=== PATIENT | male | born 1940 | race Caucasian/White ===

== ENCOUNTER 2024-02-05 17:45 | Observation (INO) | payer MEDICARE, OTHER, SELFPAY ==
[2024-02-05] VITALS (11 sets, daily range): BP systolic 118–180; BP diastolic 72–98; PULSE 77; O2SAT 97
[2024-02-05 11:52] LABS: % Basophils 0.5 % (0-2); % Eosinophils 0.7 % (0-6); % Immature Granulocytes 0.4 % (0-0.5); % Lymphocytes 13.5 % (20.5-51.1); % Neutrophils 75.9 % (42.2-75.2); Absolute Basophils 0.1 10^3/uL (0-0.2); Absolute Eosinophils 0.1 10^3/uL (0-0.7); Absolute Lymphocytes 1.3 10^3/uL (1.2-3.4); Absolute Monocytes 0.9 10^3/uL (0.1-0.6); Absolute Neutrophils 7.3 10^3/uL (1.4-6.5); Hematocrit 41.4 % (39.0-52.0); Hemoglobin 14.2 g/dL (13.0-18.0); Mean Corp Hgb Conc. 34.3 g/dL (33.0-37.0); Mean Corpuscular Hgb 28.6 pg (27.0-31.0); Mean Corpuscular Volume 83.5 fL (80.0-94.0); Mean Platelet Volume 8.4 fL (7.4-10.4); Nucleated Red Blood Cells % 0 % (-); Platelet Count 223 10^3/uL (130-400); Red Blood Cell Count 4.96 10^6/uL (4.70-6.10); Red Cell Dist. Width 13.4 % (11.5-14.5); White Blood Cell Count 9.7 10^3/uL (4.8-10.8)
[2024-02-05 12:46] LABS: Blood Urea Nitrogen 19 mg/dl (9-20); Calcium 9.5 mg/dl (8.4-10.2); Carbon Dioxide 26 mmol/L (22-30); Chloride 100 mmol/L (98-107); Glucose 101 mg/dl (70-99); Sodium 137 mmol/L (135-145); eGFR > 60.00
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
[2024-02-05 15:37] LABS: Urine Albumin Negative (Neg - Trace); Urine Bilirubin Negative (Negative); Urine Character Clear (Clear); Urine Color Yellow; Urine Glucose Negative (Negative); Urine Ketone 1+ (Negative); Urine Leukocyte 2+ (Negative); Urine Nitrite Positive (Negative); Urine Occult Blood Negative (Negative); Urine Urobilinogen Negative (Neg - 1+)
[2024-02-05 15:53] LABS: Urine Squamous Cell 0-2 /LPF (Few)
[2024-02-05 15:54] LABS: Urine Bacteria Many (Negative); Urine Red Blood Cell 0-2 /HPF (0-2); Urine White Cell 50-60 /HPF (0-5)
[2024-02-05] MEDS: KEFLEX 500 MG PO (16:25)
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
[2024-02-05] MEDS: SEROQUEL 25 MG PO (20:40)
[2024-02-05] MEDS: FEOSOL 325 MG PO (20:41)
[2024-02-05] MEDS: LIPITOR 40 MG PO (20:41)
[2024-02-05] MEDS: VITAMIN D3 (cholecalciferol) 50 MCG PO (20:41)
[2024-02-05] MEDS: COREG 12.5 MG PO (20:41)
[2024-02-05] MEDS: SINEMET 25-100 1 TABLET PO (20:41)
[2024-02-05] MEDS: CEFTIN 500 MG PO (20:41)
[2024-02-05] MEDS: HEPARIN 5000 UNITS SC (20:42)
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
[2024-02-06 08:15] LABS: % Basophils 0.7 % (0-2); % Eosinophils 1.4 % (0-6); % Immature Granulocytes 0.3 % (0-0.5); % Lymphocytes 21.7 % (20.5-51.1); % Neutrophils 64.9 % (42.2-75.2); Absolute Basophils 0.1 10^3/uL (0-0.2); Absolute Eosinophils 0.1 10^3/uL (0-0.7); Absolute Lymphocytes 1.5 10^3/uL (1.2-3.4); Absolute Monocytes 0.8 10^3/uL (0.1-0.6); Absolute Neutrophils 4.6 10^3/uL (1.4-6.5); Hematocrit 39.8 % (39.0-52.0); Hemoglobin 13.3 g/dL (13.0-18.0); Mean Corp Hgb Conc. 33.4 g/dL (33.0-37.0); Mean Corpuscular Hgb 28.2 pg (27.0-31.0); Mean Corpuscular Volume 84.5 fL (80.0-94.0); Mean Platelet Volume 8.7 fL (7.4-10.4); Nucleated Red Blood Cells % 0 % (-); Platelet Count 201 10^3/uL (130-400); Red Blood Cell Count 4.71 10^6/uL (4.70-6.10); Red Cell Dist. Width 13.3 % (11.5-14.5)
[2024-02-06 08:21] VITALS: BP 160/80
[2024-02-06] MEDS: LEXAPRO 10 MG PO (08:30)
[2024-02-06] MEDS: ALDACTONE 25 MG PO (08:30)
[2024-02-06] MEDS: PROTONIX 40 MG PO (08:30)
[2024-02-06] MEDS: LOW STRENGTH ASPIRIN 81 MG PO (08:30)
[2024-02-06] MEDS: COREG 12.5 MG PO ×2 (08:30→19:35)
[2024-02-06] MEDS: NORVASC 5 MG PO (08:31)
[2024-02-06] MEDS: CEFTIN 500 MG PO ×2 (08:31→19:34)
[2024-02-06] MEDS: HEPARIN 5000 UNITS SC ×2 (08:31→19:34)
[2024-02-06] MEDS: SEROQUEL 12.5 MG PO (08:32)
[2024-02-06] MEDS: SINEMET 25-100 1 TABLET PO ×3 (08:39→21:20)
[2024-02-06 09:54] LABS: ALT (SGPT) 15 U/L (0-50); AST (SGOT) 24 U/L (17-59); Albumin 3.6 g/dl (3.5-5.0); Alkaline Phosphatase 61 U/L (38-126); Blood Urea Nitrogen 13 mg/dl (9-20); Carbon Dioxide 25 mmol/L (22-30); Chloride 103 mmol/L (98-107); Glucose 81 mg/dl (70-99); Potassium 3.9 mmol/L (3.5-5.1); Sodium 141 mmol/L (135-145); Total Bilirubin 1.3 mg/dl (0.2-1.3); Total Protein 6.2 g/dl (6.3-8.2); eGFR > 60.00
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
[2024-02-06 14:39] VITALS: BP 165/77
[2024-02-06] MEDS: LIPITOR 40 MG PO (17:07)
[2024-02-06] MEDS: FEOSOL 325 MG PO (17:08)
[2024-02-06] MEDS: VITAMIN D3 (cholecalciferol) 50 MCG PO (17:08)
[2024-02-06] MEDS: SEROQUEL 25 MG PO (21:20)
[2024-02-06 23:00] VITALS: BP 154/70
[2024-02-07 07:30] VITALS: BP 153/81
[2024-02-07] MEDS: CEFTIN 500 MG PO (08:14)
[2024-02-07] MEDS: COREG 12.5 MG PO ×2 (08:14→19:53)
[2024-02-07] MEDS: SEROQUEL 12.5 MG PO (08:14)
[2024-02-07] MEDS: LEXAPRO 10 MG PO (08:15)
[2024-02-07] MEDS: PROTONIX 40 MG PO (08:15)
[2024-02-07] MEDS: NORVASC 5 MG PO (08:15)
[2024-02-07] MEDS: LOW STRENGTH ASPIRIN 81 MG PO (08:15)
[2024-02-07] MEDS: ALDACTONE 25 MG PO (08:15)
[2024-02-07] MEDS: SINEMET 25-100 1 TABLET PO ×3 (08:16→19:53)
--- NOTE | 2024-02-07 09:04 | CM ---
Addendum entered by Lary Rosas 02/07/24 13:21:
CM received updated insurance information for patient, patient primary insurance Medicare. Per [place], patient does not qualify for [facility]. [facility]avi, requested return call regarding discharge planning.
Original Note:
CM placed call to patients previous caregiver, Lazaro Ortiz ([phone]). Lazaro provided CM with patients current insurance as previous insurance listed: [employer] ID# [id number] has been inactive since 04/02/23. New insurance:
[facility] ID#: [id number]. CM will update SNF referrals with new insurance information. CM will continue to follow for all discharge planning needs.
Plan; SNF pending accepting facility, will require insurance auth.
[2024-02-07 12:56] VITALS: BP 172/92; BP 175/101; PULSE 66
[2024-02-07 15:10] VITALS: BP 132/66
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
[2024-02-07] MEDS: LOVENOX 40 MG SC (18:00)
[2024-02-07] MEDS: LIPITOR 40 MG PO (18:01)
[2024-02-07] MEDS: VITAMIN D3 (cholecalciferol) 50 MCG PO (18:01)
[2024-02-07] MEDS: FEOSOL 325 MG PO (18:01)
[2024-02-07] MEDS: OMNICEF 300 MG PO (19:53)
[2024-02-07] MEDS: SEROQUEL 25 MG PO (21:53)
[2024-02-07 23:12] VITALS: BP 101/51
[2024-02-08 07:00] VITALS: BP 148/65
[2024-02-08] MEDS: OMNICEF 300 MG PO ×2 (08:34→20:18)
[2024-02-08] MEDS: PROTONIX 40 MG PO (08:34)
[2024-02-08] MEDS: ALDACTONE 25 MG PO (08:34)
[2024-02-08] MEDS: LOW STRENGTH ASPIRIN 81 MG PO (08:34)
[2024-02-08] MEDS: NORVASC 5 MG PO (08:35)
[2024-02-08] MEDS: SEROQUEL 12.5 MG PO (08:36)
[2024-02-08] MEDS: LEXAPRO 10 MG PO (08:36)
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
[2024-02-08] MEDS: COREG PO (08:55)
[2024-02-08] MEDS: SINEMET 25-100 1 TABLET PO ×3 (09:01→20:18)
--- NOTE | 2024-02-08 09:08 | CM ---
CM spoke with Agency worker, Javi Dominguez [phone]. CM discussed patient is observation status, would be private pay for SNF. Javi reports patient previously had waiver services, did not complete the renewal paperwork in time, is now past due for
the appeal process. Javi will speak with her fire supervisor, will try to expedite appeal process for waiver services, will also see if [employer] willing to pay for caregiver services in the home if needed. Javi will update CM after speaking with fire supervisor.
CM will continue to follow for all discharge planning needs.
Plan; will depend on [employer] involvement if patient is able to return home
[2024-02-08] MEDS: COREG 6.25 MG PO ×2 (12:57→20:17)
[2024-02-08 15:00] VITALS: BP 148/78
[2024-02-08] MEDS: LOVENOX 40 MG SC (17:45)
[2024-02-08] MEDS: FEOSOL 325 MG PO (17:46)
[2024-02-08] MEDS: VITAMIN D3 (cholecalciferol) 50 MCG PO (17:46)
[2024-02-08] MEDS: LIPITOR 40 MG PO (17:46)
[2024-02-08 19:00] VITALS: BP 137/74
[2024-02-08] MEDS: SEROQUEL 25 MG PO (22:43)
[2024-02-08 23:34] VITALS: BP 111/54
[2024-02-09 03:24] VITALS: BP 141/78
[2024-02-09 07:00] VITALS: BP 155/77
[2024-02-09] MEDS: ALDACTONE 25 MG PO (08:17)
[2024-02-09] MEDS: COREG 6.25 MG PO ×2 (08:17→19:56)
[2024-02-09] MEDS: OMNICEF 300 MG PO ×2 (08:18→19:56)
[2024-02-09] MEDS: NORVASC 5 MG PO (08:18)
[2024-02-09] MEDS: LEXAPRO 10 MG PO (08:18)
[2024-02-09] MEDS: SEROQUEL 12.5 MG PO (08:18)
[2024-02-09] MEDS: LOW STRENGTH ASPIRIN 81 MG PO (08:18)
[2024-02-09] MEDS: PROTONIX 40 MG PO (08:18)
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
[2024-02-09] MEDS: SINEMET 25-100 1 TABLET PO ×3 (09:40→20:00)
[2024-02-09 11:00] VITALS: BP 134/65
[2024-02-09 15:00] VITALS: BP 116/60
[2024-02-09] MEDS: LIPITOR 40 MG PO (17:35)
[2024-02-09] MEDS: FEOSOL 325 MG PO (17:35)
[2024-02-09] MEDS: VITAMIN D3 (cholecalciferol) 50 MCG PO (17:36)
[2024-02-09] MEDS: LOVENOX 40 MG SC (17:36)
[2024-02-09 19:00] VITALS: BP 137/72
[2024-02-09] MEDS: SEROQUEL 25 MG PO (21:55)
[2024-02-09 23:00] VITALS: BP 119/59
[2024-02-10 03:00] VITALS: BP 122/62
[2024-02-10] MEDS: TYLENOL 1000 MG PO (04:31)
[2024-02-10 07:30] VITALS: BP 141/71
[2024-02-10] MEDS: LOW STRENGTH ASPIRIN 81 MG PO (08:34)
[2024-02-10] MEDS: LEXAPRO 10 MG PO (08:34)
[2024-02-10] MEDS: SEROQUEL 12.5 MG PO (08:34)
[2024-02-10] MEDS: COREG 6.25 MG PO ×2 (08:35→20:55)
[2024-02-10] MEDS: NORVASC 5 MG PO (08:35)
[2024-02-10] MEDS: OMNICEF 300 MG PO ×2 (08:35→20:55)
[2024-02-10] MEDS: PROTONIX 40 MG PO (08:35)
[2024-02-10] MEDS: ALDACTONE 25 MG PO (08:36)
[2024-02-10] MEDS: SINEMET 25-100 1 TABLET PO ×3 (08:37→20:57)
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
[2024-02-10 15:00] VITALS: BP 131/70
[2024-02-10] MEDS: VITAMIN D3 (cholecalciferol) 50 MCG PO (17:14)
[2024-02-10] MEDS: LOVENOX 40 MG SC (17:14)
[2024-02-10] MEDS: FEOSOL 325 MG PO (17:14)
[2024-02-10] MEDS: LIPITOR 40 MG PO (17:14)
[2024-02-10] MEDS: SEROQUEL 25 MG PO (20:56)
[2024-02-10 23:22] VITALS: BP 138/71
[2024-02-11] MEDS: TYLENOL 650 MG PO (03:24)
[2024-02-11 07:00] VITALS: BP 141/69
[2024-02-11 08:37] LABS: % Eosinophils 3.4 % (0-6); % Immature Granulocytes 0.5 % (0-0.5); % Lymphocytes 23.3 % (20.5-51.1); % Monocytes 9.8 % (1.7-9.3); Absolute Basophils 0.1 10^3/uL (0-0.2); Absolute Eosinophils 0.3 10^3/uL (0-0.7); Absolute Lymphocytes 1.8 10^3/uL (1.2-3.4); Absolute Monocytes 0.8 10^3/uL (0.1-0.6); Absolute Neutrophils 4.8 10^3/uL (1.4-6.5); Hematocrit 41.4 % (39.0-52.0); Hemoglobin 13.2 g/dL (13.0-18.0); Mean Corp Hgb Conc. 31.9 g/dL (33.0-37.0); Mean Corpuscular Hgb 28.4 pg (27.0-31.0); Mean Corpuscular Volume 89.2 fL (80.0-94.0); Mean Platelet Volume 8.7 fL (7.4-10.4); Nucleated Red Blood Cells % 0 % (-); Platelet Count 215 10^3/uL (130-400); Red Blood Cell Count 4.64 10^6/uL (4.70-6.10); Red Cell Dist. Width 13.6 % (11.5-14.5); White Blood Cell Count 7.7 10^3/uL (4.8-10.8)
[2024-02-11 09:05] LABS: Blood Urea Nitrogen 16 mg/dl (9-20); Calcium 9.1 mg/dl (8.4-10.2); Carbon Dioxide 28 mmol/L (22-30); Chloride 100 mmol/L (98-107); Estimated Creatinine Clearance 68 ml/min; Glucose 95 mg/dl (70-99); Magnesium 2.1 mg/dl (1.6-2.3); Potassium 4.6 mmol/L (3.5-5.1); Sodium 141 mmol/L (135-145); eGFR > 60.00
--- NOTE | 2024-02-11 09:14 | CM ---
CM placed call to [facility] worker, Javi Dominguez [phone]. CM left voicemail, requested return call to discuss discharge planning for patient. CM will continue to follow for all discharge planning needs.
Plan; will depend on assistance from [facility].
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
[2024-02-11] MEDS: LEXAPRO 10 MG PO (10:07)
[2024-02-11] MEDS: PROTONIX 40 MG PO (10:07)
[2024-02-11] MEDS: ALDACTONE 25 MG PO (10:07)
[2024-02-11] MEDS: SEROQUEL 12.5 MG PO (10:08)
[2024-02-11] MEDS: NORVASC 5 MG PO (10:08)
[2024-02-11] MEDS: COREG 6.25 MG PO ×2 (10:08→20:55)
[2024-02-11] MEDS: LOW STRENGTH ASPIRIN 81 MG PO (10:09)
[2024-02-11] MEDS: OMNICEF 300 MG PO ×2 (10:09→20:55)
[2024-02-11] MEDS: SINEMET 25-100 1 TABLET PO ×3 (10:11→20:55)
[2024-02-11 11:39] VITALS: BP 117/65; PULSE 60; O2SAT 95
[2024-02-11 15:00] VITALS: BP 138/64
[2024-02-11] MEDS: LIPITOR 40 MG PO (16:04)
[2024-02-11] MEDS: LOVENOX 40 MG SC (16:04)
[2024-02-11] MEDS: FEOSOL 325 MG PO (16:05)
[2024-02-11] MEDS: VITAMIN D3 (cholecalciferol) 50 MCG PO (16:14)
[2024-02-11] MEDS: SEROQUEL 25 MG PO (20:55)
[2024-02-11 23:25] VITALS: BP 126/68
[2024-02-12 07:50] VITALS: BP 147/79
[2024-02-12] MEDS: COREG 6.25 MG PO ×2 (08:16→20:31)
[2024-02-12] MEDS: OMNICEF 300 MG PO ×2 (08:16→20:31)
[2024-02-12] MEDS: LEXAPRO 10 MG PO (08:16)
[2024-02-12] MEDS: PROTONIX 40 MG PO (08:16)
[2024-02-12] MEDS: LOW STRENGTH ASPIRIN 81 MG PO (08:16)
[2024-02-12] MEDS: ALDACTONE 25 MG PO (08:16)
[2024-02-12] MEDS: NORVASC 5 MG PO (08:16)
[2024-02-12] MEDS: SEROQUEL 12.5 MG PO (08:17)
[2024-02-12] MEDS: SINEMET 25-100 1 TABLET PO ×3 (08:18→20:31)
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
--- NOTE | 2024-02-12 12:21 | CM ---
CM reviewed chart, spoke with Javi from [facility], will visit patient at Hospital today. Per Javi, patient has not missed the appeal process for waiver services and Javi will provide paperwork to patient today to sign. Met with patient
bedside, discussed patient would need to privately pay for SNF, patient unable to do so. CM discussed [employer] will pay for caregivers in the home until waiver services kick in, patient reports he is not comfortable returning to home with previous
caregiver, Lazaro, still living in home will relay to Javi.
CM met with Javi, [facility] ip attorney notified and will assist patient with expediting waiver services appeal. Patient will need to begin eviction process for ex caregiver to leave home, Javi to assist and provide resources to patient in process. CM will
continue to follow for all discharge planning needs.
Plan; [facility] working with patient to assist with waiver program/eviction process.
[2024-02-12 12:28] VITALS: BP 117/68; PULSE 62; O2SAT 98
[2024-02-12 15:06] VITALS: BP 108/59
[2024-02-12] MEDS: LOVENOX 40 MG SC (16:20)
[2024-02-12] MEDS: FEOSOL 325 MG PO (16:21)
[2024-02-12] MEDS: LIPITOR 40 MG PO (16:21)
[2024-02-12] MEDS: VITAMIN D3 (cholecalciferol) 50 MCG PO (16:21)
[2024-02-12] MEDS: SEROQUEL 25 MG PO (20:31)
[2024-02-12 23:03] VITALS: BP 134/68
[2024-02-13 07:30] VITALS: BP 154/77
[2024-02-13] MEDS: ALDACTONE 25 MG PO (08:05)
[2024-02-13] MEDS: OMNICEF 300 MG PO ×2 (08:05→20:00)
[2024-02-13] MEDS: LOW STRENGTH ASPIRIN 81 MG PO (08:06)
[2024-02-13] MEDS: SEROQUEL 12.5 MG PO (08:06)
[2024-02-13] MEDS: NORVASC 5 MG PO (08:06)
[2024-02-13] MEDS: COREG 6.25 MG PO ×2 (08:06→20:00)
[2024-02-13] MEDS: LEXAPRO 10 MG PO (08:06)
[2024-02-13] MEDS: PROTONIX 40 MG PO (08:08)
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
[2024-02-13] MEDS: SINEMET 25-100 1 TABLET PO ×3 (09:33→21:05)
[2024-02-13 10:09] VITALS: BP 115/60; PULSE 59; O2SAT 96
[2024-02-13 14:53] VITALS: BP 149/74
--- NOTE | 2024-02-13 15:44 | CM ---
Addendum entered by Lary Rosas 02/13/24 15:51:
PT/OT notes faxed to Javi Dominguez ([facility]) [phone].
Original Note:
CM reviewed chart, patient seen bedside. Per Javi [facility] worker, have not heard back from traffic law attorney, asking if patient can call [employer] [facility] [phone]- provided to patient, will need assistance calling. [facility] requesting psych consult- TT to
Hospitalist. Referral sent to [facility] SNF, will try for secondary insurance for SNF approval if SNF can offer bed. CM will continue to follow for all discharge planning needs.
Plan; will try for SNF auth through secondary insurance if accepting SNF.
[2024-02-13] MEDS: VITAMIN D3 (cholecalciferol) 50 MCG PO (17:26)
[2024-02-13] MEDS: FEOSOL 325 MG PO (17:26)
[2024-02-13] MEDS: LIPITOR 40 MG PO (17:26)
[2024-02-13] MEDS: LOVENOX 40 MG SC (17:26)
[2024-02-13 19:59] VITALS: BP 136/64
[2024-02-13] MEDS: TYLENOL 650 MG PO (20:01)
[2024-02-13] MEDS: SEROQUEL 25 MG PO (21:05)
[2024-02-13 23:30] VITALS: BP 111/55
[2024-02-14 07:30] VITALS: BP 139/70
[2024-02-14] MEDS: PROTONIX 40 MG PO (07:46)
[2024-02-14] MEDS: OMNICEF 300 MG PO ×2 (07:46→20:14)
[2024-02-14] MEDS: LOW STRENGTH ASPIRIN 81 MG PO (07:46)
[2024-02-14] MEDS: NORVASC 5 MG PO (07:46)
[2024-02-14] MEDS: ALDACTONE 25 MG PO (07:47)
[2024-02-14] MEDS: SEROQUEL 12.5 MG PO (07:47)
[2024-02-14] MEDS: COREG 6.25 MG PO ×2 (07:48→20:14)
[2024-02-14] MEDS: LEXAPRO 10 MG PO (09:22)
[2024-02-14] MEDS: SINEMET 25-100 1 TABLET PO ×3 (09:22→21:17)
[2024-02-14] MEDS: REFRESH EYE DROPS (PF) 1 DROPS OPHTH ×3 (13:31→21:17)
[2024-02-14 15:00] VITALS: BP 147/77
[2024-02-14] MEDS: VITAMIN D3 (cholecalciferol) 50 MCG PO (17:27)
[2024-02-14] MEDS: LIPITOR 40 MG PO (17:27)
[2024-02-14] MEDS: FEOSOL 325 MG PO (17:27)
[2024-02-14] MEDS: LOVENOX 40 MG SC (17:28)
[2024-02-14 20:12] VITALS: BP 122/64
[2024-02-14] MEDS: SEROQUEL 25 MG PO (21:17)
[2024-02-14 23:30] VITALS: BP 132/60
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
[2024-02-15 08:14] VITALS: BP 163/78
[2024-02-15] MEDS: COREG 6.25 MG PO ×2 (08:15→20:28)
[2024-02-15] MEDS: OMNICEF 300 MG PO ×2 (08:15→20:15)
[2024-02-15] MEDS: PROTONIX 40 MG PO (08:15)
[2024-02-15] MEDS: ALDACTONE 25 MG PO (08:15)
[2024-02-15] MEDS: LOW STRENGTH ASPIRIN 81 MG PO (08:15)
[2024-02-15] MEDS: LEXAPRO 10 MG PO (08:15)
[2024-02-15] MEDS: SEROQUEL 12.5 MG PO (08:16)
[2024-02-15] MEDS: REFRESH EYE DROPS (PF) 1 DROPS OPHTH ×4 (08:16→20:15)
[2024-02-15] MEDS: NORVASC 5 MG PO (08:16)
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
[2024-02-15] MEDS: SINEMET 25-100 1 TABLET PO ×3 (10:15→20:29)
[2024-02-15 10:22] VITALS: BP 131/62; PULSE 60; O2SAT 97
--- NOTE | 2024-02-15 13:56 | CM ---
[facility] able to offer patient a bed if auth approved. [place] [phone], instructed to complete prior auth request form and send with clinicals, no pending auth number given. CM will continue to follow
for all discharge planning needs.
Plan; [place] [facility], [facility] following.
[2024-02-15 15:00] VITALS: BP 139/73
[2024-02-15] MEDS: LIPITOR 40 MG PO (17:38)
[2024-02-15] MEDS: FEOSOL 325 MG PO (17:38)
[2024-02-15] MEDS: VITAMIN D3 (cholecalciferol) 50 MCG PO (17:38)
[2024-02-15] MEDS: LOVENOX 40 MG SC (17:39)
[2024-02-15] MEDS: SEROQUEL 25 MG PO (20:16)
[2024-02-15 23:00] VITALS: BP 114/61
[2024-02-16 07:24] VITALS: BP 156/80
[2024-02-16] MEDS: PROTONIX 40 MG PO (07:26)
[2024-02-16] MEDS: LEXAPRO 10 MG PO (07:26)
[2024-02-16] MEDS: COREG 6.25 MG PO ×2 (07:26→20:17)
[2024-02-16] MEDS: LOW STRENGTH ASPIRIN 81 MG PO (07:26)
[2024-02-16] MEDS: ALDACTONE 25 MG PO (07:26)
[2024-02-16] MEDS: SEROQUEL 12.5 MG PO (07:26)
[2024-02-16] MEDS: OMNICEF 300 MG PO ×2 (07:26→20:17)
[2024-02-16] MEDS: NORVASC 5 MG PO (07:26)
[2024-02-16] MEDS: TYLENOL 650 MG PO (07:27)
[2024-02-16] MEDS: REFRESH EYE DROPS (PF) 1 DROPS OPHTH ×4 (07:27→20:19)
[2024-02-16] MEDS: SINEMET 25-100 1 TABLET PO ×3 (09:26→20:21)
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
[2024-02-16 15:00] VITALS: BP 135/75
[2024-02-16] MEDS: FEOSOL 325 MG PO (17:34)
[2024-02-16] MEDS: LOVENOX 40 MG SC (17:34)
[2024-02-16] MEDS: LIPITOR 40 MG PO (17:34)
[2024-02-16] MEDS: VITAMIN D3 (cholecalciferol) 50 MCG PO (17:34)
[2024-02-16] MEDS: SEROQUEL 25 MG PO (20:19)
[2024-02-16 23:44] VITALS: BP 114/53
[2024-02-17 07:45] VITALS: BP 160/79
[2024-02-17] MEDS: ALDACTONE 25 MG PO (08:41)
[2024-02-17] MEDS: LEXAPRO 10 MG PO (08:41)
[2024-02-17] MEDS: COREG 6.25 MG PO ×2 (08:41→20:05)
[2024-02-17] MEDS: REFRESH EYE DROPS (PF) 1 DROPS OPHTH ×4 (08:41→20:05)
[2024-02-17] MEDS: SEROQUEL 12.5 MG PO (08:41)
[2024-02-17] MEDS: NORVASC 5 MG PO (08:41)
[2024-02-17] MEDS: LOW STRENGTH ASPIRIN 81 MG PO (08:41)
[2024-02-17] MEDS: SINEMET 25-100 1 TABLET PO ×3 (08:41→20:06)
[2024-02-17] MEDS: PROTONIX 40 MG PO (08:41)
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
[2024-02-17 15:23] VITALS: BP 144/67
[2024-02-17] MEDS: LOVENOX 40 MG SC (17:23)
[2024-02-17] MEDS: FEOSOL 325 MG PO (17:23)
[2024-02-17] MEDS: LIPITOR 40 MG PO (17:23)
[2024-02-17] MEDS: VITAMIN D3 (cholecalciferol) 50 MCG PO (17:23)
[2024-02-17] MEDS: SEROQUEL 25 MG PO (20:05)
[2024-02-17 23:20] VITALS: BP 112/63
[2024-02-18] MEDS: TYLENOL 1000 MG PO (00:44)
[2024-02-18 07:37] LABS: Glucose - Point of Care 86 mg/dl (70-99)
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
[2024-02-18 08:02] VITALS: BP 156/76
[2024-02-18] MEDS: PROTONIX 40 MG PO (08:02)
[2024-02-18] MEDS: LOW STRENGTH ASPIRIN 81 MG PO (08:04)
[2024-02-18] MEDS: REFRESH EYE DROPS (PF) 1 DROPS OPHTH ×2 (08:04→12:59)
[2024-02-18] MEDS: LEXAPRO 10 MG PO (08:04)
[2024-02-18] MEDS: SEROQUEL 12.5 MG PO (08:04)
[2024-02-18] MEDS: NORVASC 5 MG PO (08:05)
[2024-02-18] MEDS: COREG 6.25 MG PO (08:06)
[2024-02-18] MEDS: ALDACTONE 25 MG PO (08:06)
[2024-02-18] MEDS: SINEMET 25-100 1 TABLET PO ×2 (08:10→15:06)
--- NOTE | 2024-02-18 10:13 | CM ---
Addendum entered by Lary Rosas 02/18/24 10:35:
Patient scheduled for 4:00 p.m. transport.
Original Note:
CM received auth approval through [facility], auth approved 02/17-03/18, auth #[id number], fax updates to , update to Noelle at [facility]. Patient seen bedside, aware of plan for discharge to [facility]. Javi
Alberto with [employer] updated on discharge status. Patient will require transport, forms provided to community affairs director. CM will continue to follow for all discharge planning needs.
Plan; [facility], ambulance transport.
[facility]
Report: [phone]
[2024-02-18 15:11] VITALS: BP 139/69
== END 2024-02-18 17:04 ==
LOC: 4 WEST ACU 17:45
PROVIDERS: Physician Assistant; ADMITTING PHYSICIAN Hospitalist; ATTENDING PHYSICIAN Hospitalist; EMERGENCY PHYSICIAN Emergency Medicine; OTHER PHYSICIAN Psychiatry & Neurology Psychiatry
DX: N39.0 Urinary tract infection, site not specified (principal); R44.1 Visual hallucinations; B96.1 Klebsiella pneumoniae [K. pneumoniae] as the cause of diseases classified elsewhere; N40.0 Benign prostatic hyperplasia without lower urinary tract symptoms; H21.89 Other specified disorders of iris and ciliary body; E78.00 Pure hypercholesterolemia, unspecified; I10 Essential (primary) hypertension; G31.9 Degenerative disease of nervous system, unspecified; R00.1 Bradycardia, unspecified; I25.10 Atherosclerotic heart disease of native coronary artery without angina pectoris; F41.9 Anxiety disorder, unspecified; F32.A Depression, unspecified; K21.9 Gastro-esophageal reflux disease without esophagitis; R56.9 Unspecified convulsions; Z63.8 Other specified problems related to primary support group; Z63.79 Other stressful life events affecting family and household; Z75.1 Person awaiting admission to adequate facility elsewhere; Z86.73 Personal history of transient ischemic attack (TIA), and cerebral infarction without residual deficits; Z79.82 Long term (current) use of aspirin; Z95.1 Presence of aortocoronary bypass graft; Z87.440 Personal history of urinary (tract) infections
CPT/HCPCS: 70450; 80048; 80053; 81003; 81015; 82962; 83735; 85025; 87077; 87086; 87186; 97110; 97116; 97167; 97530; 97535; 99285; G0378